=== PATIENT | female | born 1940 | race Caucasian/White ===

== ENCOUNTER → 2016-12-02 | Outpatient (CLI) | payer MEDICARE, OTHER ==
[~2016-12-02] MED LIST: ALBU.5I NEB; AUGM875T PO; CALC1TAB12 PO; MULT1TAB84 PO; SPIRCAP INH; VENL37.5 PO; VENTAER INH; ZOFR4TAB3 SL
[2016-12-02 14:42] LABS: BLOOD GAS BASE EXCESS 1.2 mmol/L (-2-2); BLOOD GAS CARBOXYHEMOGLOBIN 2.6 % (0-4); BLOOD GAS HCO3 25 mmol/L (22-26); BLOOD GAS METHEMOGLOBIN 1.1 % (0-2); BLOOD GAS O2 HGB SATURATION 90 % (90-100); BLOOD GAS OXYGEN CONTENT 15.7 Vol % (12.0-20.0); BLOOD GAS PCO2 39 mmHg (38-42); BLOOD GAS PO2 68 mmHg (61-120); BLOOD GAS TOTAL HGB 12.5 G/DL (12.0-16.0); TEMP CORR TO 98.6
[2016-12-02 14:44] LABS: CRITICAL VALUE NO; DRAW SITE RT RADIAL; FIO2 21 %; NUMBER OF ARTERIAL PUNCTURES 1; STAT NO; ULNAR PULSE PRESENT
--- NOTE | 2016-12-08 10:12 | RSPPFT ---
DATE OF PROCEDURE: 12/02/16 COMMENTS: Spirometry with FVC of 1.9 predicted 2.2, FEV1 of 0.7 predicted 1.4, FEV1/FVC ratio 39% predicted 67%. Post-bronchodilator FVC increases to 2.2. Severe air trapping is present with RV 3.6 predicted 1.6. DLCO is 37% of predicted. IMPRESSION: On the basis of the above, patient has a severe obstructive lung defect with responsiveness to acutely inhaled bronchodilator. Air trapping and decreased DLCO are also present.
== END ==
LOC: HRSP 13:05
PROVIDERS: ATTEND Internal Medicine Pulmonary Disease
DX: J44.9 Chronic obstructive pulmonary disease, unspecified (principal)
CPT/HCPCS: 36600; 82805; 94060; 94620; 94726; 94729

== ENCOUNTER 2017-08-01 15:40 | Inpatient (IN) | payer MEDICARE, OTHER ==
[~2017-08-01] VITALS: Ht 154.9 cm; Wt 49.4 kg
[2017-08-01 15:50] VITALS: BP 139/84; PULSE 109; RESP 28; TEMP 98.1; O2SAT 92
[2017-08-01 16:15] VITALS: RESP 24; O2SAT 94
[2017-08-01] MEDS ORDERED: SODIUM CHLORIDE 0.9% FLUSH 10 ML FLUSH IVF PRN (16:15)
[2017-08-01] MEDS ORDERED: RESP: ALBUTEROL 2.5 MG/IPRATROPIUM 0.5 MG NEB (SCH) INH ONE (16:15)
--- NOTE | 2017-08-01 16:16 | PD ---
HPI Chief Complaint: Respiratory Distress Time Seen by Provider: 15:57 Travel History International Travel<30 days: No Contact w/Intl Traveler<30days: No History of Present Illness HPI 77 year-old woman presents to the emergency department complaining of increased shortness of breath and productive cough for the past week. History of COPD and home oxygen dependence. No fevers. No chest pain. Using breathing medicines at home without improvement. With EMS received 125 mg of Solu-Medrol and breathing treatments with some improvement. History Past Medical History Narrative Medical COPD Tobacco abuse Hypertension Possible pulmonary fibrosis according to previous records Depression Menopausal: Yes Dilation and Curettage (D&C): Yes Social History Alcohol Use: Yes (3-4 BEERS/wine DAILY) Tobacco Use: Yes (2 PP WEEK) Allergies-Medications (Allergen,Severity, Reaction): Coded Allergies: epinephrine (Unverified Allergy, Severe, HEART FLUTTER-AT DENTIST OFFICE, 08/01/17) Reported Meds & Prescriptions Reported Meds & Active Scripts Active Reported Advair Diskus Inh (Fluticasone-Salmeterol Inh) 250-50 Mcg/Blist Aer 1 Puff INH BID Rinse mouth after use. Incruse Ellipta Inh (Umeclidinium [place] Inh) 0.0625 Mg/Act Inh 62.5 Mcg INH DAILY Montelukast (Montelukast Sodium) 10 Mg Tab 10 Mg PO HS Doxycycline Hyclate 100 Mg Cap 100 Mg PO BID Calcium 500 +D (Calcium Carbonate-Cholecalciferol) 500-400 Mg-Unit Tab 1 Tab PO BID Effexor (Venlafaxine HCl) 37.5 Mg Tab 37.5 Mg PO Q12H Ventolin Hfa 18 GM Inh (Albuterol Sulfate) 90 Mcg/Act Aer 1 Puff INH Q4H PRN Albuterol Neb (Albuterol Sulfate) 2.5 Mg/0.5 Ml Neb 2.5 Mg NEB Q4HR NEB PRN Note: The Albuterol Sulfate Inhalation Solution is concentrated and must be diluted. Read complete instructions carefully before using. Review of Systems Except as stated in HPI: all other systems reviewed are Neg Physical Exam Narrative GENERAL: Frail 77 year-old woman, severe shortness of breath. SKIN: Focused skin assessment warm/dry. HEAD: Atraumatic. Normocephalic. EYES: Pupils equal and round. No scleral icterus. No injection or drainage. ENT: No nasal bleeding or discharge. Mucous membranes pink and moist. NECK: Trachea midline. No JVD. CARDIOVASCULAR: Regular rate and rhythm. No murmur appreciated. RESPIRATORY: Moderate respiratory distress. Speaks in short sentences. Still labored. Moderate diffuse wheezing. Good air movement. GASTROINTESTINAL: Evidence flat and soft. No tenderness. MUSCULOSKELETAL: No obvious deformities. No edema. NEUROLOGICAL: Awake and alert. No obvious cranial nerve deficits. Motor grossly within normal limits. Normal speech. Data Data Last Documented VS Vital Signs Date Time Temp Pulse Resp B/P (MAP) Pulse Ox O2 Delivery O2 Flow Rate FiO2 08/01/17 16:16 94 Nasal Cannula 3.00 08/01/17 16:15 24 08/01/17 15:50 98.1 109 139/84 (102) Orders Orders Complete Blood Count With Diff (08/01/17 16:01) Comprehensive Metabolic Panel (08/01/17 16:01) B-Type Natriuretic Peptide (08/01/17 16:01) Troponin I (08/01/17 16:01) Iv Access Insert/Monitor (08/01/17 16:01) Electrocardiogram (08/01/17 16:01) Ecg Monitoring (08/01/17 16:01) Oximetry (08/01/17 16:01) Oxygen Administration (08/01/17 16:01) Chest, Single Ap (08/01/17 16:01) Sodium Chloride 0.9% Flush (Ns Flush) (08/01/17 16:15) Albuterol-Ipratropium Neb (Duoneb Neb) (08/01/17 16:15) Azithromycin (Zithromax) (08/01/17 17:15) Admit Order (Ed Use Only) (08/01/17 ) Consult Palliative Care (08/01/17 ) Labs Laboratory Tests Test 08/01/17 16:00 White Blood Count 7.1 TH/MM3 Red Blood Count 3.96 MIL/MM3 Hemoglobin 13.5 GM/DL Hematocrit 38.7 % Mean Corpuscular Volume 97.6 FL Mean Corpuscular Hemoglobin 34.0 PG Mean Corpuscular Hemoglobin Concent 34.8 % Red Cell Distribution Width 13.0 % Platelet Count 332 TH/MM3 Mean Platelet Volume 6.6 FL Neutrophils (%) (Auto) 57.3 % Lymphocytes (%) (Auto) 29.3 % Monocytes (%) (Auto) 10.5 % Eosinophils (%) (Auto) 2.4 % Basophils (%) (Auto) 0.5 % Neutrophils # (Auto) 4.1 TH/MM3 Lymphocytes # (Auto) 2.1 TH/MM3 Monocytes # (Auto) 0.7 TH/MM3 Eosinophils # (Auto) 0.2 TH/MM3 Basophils # (Auto) 0.0 TH/MM3 CBC Comment DIFF FINAL Differential Comment Blood Urea Nitrogen 7 MG/DL Creatinine 0.63 MG/DL Random Glucose 109 MG/DL Total Protein 7.7 GM/DL Albumin 4.6 GM/DL Calcium Level 9.3 MG/DL Alkaline Phosphatase 76 U/L Aspartate Amino Transf (AST/SGOT) 21 U/L Alanine Aminotransferase (ALT/SGPT) 18 U/L Total Bilirubin 0.5 MG/DL Sodium Level 131 MEQ/L Potassium Level 4.1 MEQ/L Chloride Level 95 MEQ/L Carbon Dioxide Level 28.0 MEQ/L Anion Gap 8 MEQ/L Estimat Glomerular Filtration Rate 91 ML/MIN Troponin I 0.02 NG/ML B-Type Natriuretic Peptide 202 PG/ML MDM Medical Decision Making Medical Screen Exam Complete: Yes Emergency Medical Condition: Yes Interpretation(s) My review of EKG: Sinus tachycardia rate of 100, nonspecific lateral ST depressions and T-wave inversions. Compared to previous EKG from 2014, no significant change. Differential Diagnosis COPD, hypoxia, pneumonia, bronchitis, heart failure, other Narrative Course Medical decision making the INITIAL: 69-year-old woman with COPD, chronic severe underlying, here with laceration. Still a moderate respiratory difficulties. We'll check labs, x-ray , reassess. She got steroids and bronchodilators with EMS. Diagnosis Primary Impression: COPD exacerbation Admitting Information Admitting Physician Requests: Observation Keanu Gardner MD Aug 01, 2017 16:16
[2017-08-01 16:23] LABS: AUTOMATED NEUTROPHIL # 4.1 TH/MM3 (1.8-7.7); BASOPHIL % 0.5 % (0.0-2.0); EOSINOPHIL # 0.2 TH/MM3 (0-0.4); EOSINOPHIL % 2.4 % (0.0-4.0); HEMATOCRIT 38.7 % (35.0-46.0); HEMO FLAGS DIFF FINAL; LYMPH % 29.3 % (9.0-44.0); LYMPHOCYTE # 2.1 TH/MM3 (1.0-4.8); MEAN CELL VOLUME 97.6 FL (80.0-100.0); MEAN CORPUSCULAR HGB CONC 34.8 % (32.0-36.0); MONO % 10.5 % (0.0-8.0); NEUT % 57.3 % (16.0-70.0); PLATELET COUNT 332 TH/MM3 (150-450); RED BLOOD COUNT 3.96 MIL/MM3 (4.00-5.30); WHITE BLOOD COUNT 7.1 TH/MM3 (4.0-11.0)
[2017-08-01 16:42] LABS: ALT (GPT) 18 U/L (10-53); ANION GAP 8 MEQ/L (5-15); AST (GOT) 21 U/L (15-37); BLOOD UREA NITROGEN 7 MG/DL (7-18); CHLORIDE 95 MEQ/L (98-107); GLOMERULAR FILTRATION RATE 91 ML/MIN (>89); POTASSIUM 4.1 MEQ/L (3.5-5.1); SODIUM (NA) 131 MEQ/L (136-145)
[2017-08-01 16:46] LABS: ALKALINE PHOSPHATASE 76 U/L (45-117); TOTAL BILIRUBIN ADULT 0.5 MG/DL (0.2-1.0)
--- NOTE | 2017-08-01 16:48 | RADRPT ---
EXAM DATE/TIME: 08/01/2017 16:35 [facility] COMPARISON: No previous studies available for comparison. INDICATIONS : Chest pain and shortness of breath. MEDICAL HISTORY : Chronic obstructive pulmonary disease. Hypertension SURGICAL HISTORY : None. ENCOUNTER: Initial ACUITY: 2 days PAIN SCORE: 5/10 LOCATION: Bilateral chest FINDINGS: A single view of the chest demonstrates a very similar pattern to 2016. There is a question rounded i nfiltrate at the right lung base, unchanged, could just be a diaphragmatic eventration. Left lung is clear. Heart and mediastinum are unremarkable. The cardiomediastinal contours are unremarkable. Oss eous structures are intact. CONCLUSION: Stable exam. Rounded density right lung base is unchanged. Keanu Messina MD on August 01, 2017 at 16:44 Board Certified Radiologist. This report was verified electronically.
[2017-08-01] MEDS ORDERED: MONT10TA4 PO (17:11)
[2017-08-01] MEDS ORDERED: DOXY100C PO (17:11)
[2017-08-01] MEDS ORDERED: UMEC1INH INH (17:11)
[2017-08-01] MEDS ORDERED: ADVA250A INH (17:11)
[2017-08-01] MEDS ORDERED: AZITHROMYCIN 250 MG TAB PO ONE (17:15)
[2017-08-01] MEDS ORDERED: methylPREDNISolone SOD SUCC 125 MG/2 ML VIAL IV PUSH ONE (17:45)
--- NOTE | 2017-08-01 17:47 | HHI.HP ---
HPI Service [facility] Hospitalists Primary Care Physician Osman Greenwood D.O. Admission Diagnosis COPD Exacerbation Chief Complaint: sob Travel History International Travel<30 Days: No Contact w/Intl Traveler <30 Da: No History of Present Illness Ms. Chandler is a 76 y/o WF with severe COPD, tobacco abuse, HTN, and regular alcohol use. Pt says she usually uses up to 4lnc o2 at home. She still smokes cigarettes up to 3 pack per week. Says she has had poor appetite, more weakness and more sob/wheezing. Had solumedrol and nebs and request for admission to [facility] severe copd exacerbation. Pt clear that she wants dnr. She and daughter told ED that she was interested in pallliative care consult. Review of Systems Other sob weak Past Family Social History Past Medical History COPD, PFT showed severe obstruction with FEV1 23% Asthma bronchiectasis Tobacco abuse HTN Degenerative arthritis Mild depression Urinary incontinence Hx of skin cancer Past Surgical History Skin cancer removal Knee surgery Tubal ligation Reported Medications Advair Diskus Inh (Fluticasone-Salmeterol Inh) 250-50 Mcg/Blist Aer 1 Puff INH BID Rinse mouth after use. Incruse Ellipta Inh (Umeclidinium [place] Inh) 0.0625 Mg/Act Inh 62.5 Mcg INH DAILY Montelukast (Montelukast Sodium) 10 Mg Tab 10 Mg PO HS Doxycycline Hyclate 100 Mg Cap 100 Mg PO BID Calcium 500 +D (Calcium Carbonate-Cholecalciferol) 500-400 Mg-Unit Tab 1 Tab PO BID Effexor (Venlafaxine HCl) 37.5 Mg Tab 37.5 Mg PO Q12H Ventolin Hfa 18 GM Inh (Albuterol Sulfate) 90 Mcg/Act Aer 1 Puff INH Q4H PRN Albuterol Neb (Albuterol Sulfate) 2.5 Mg/0.5 Ml Neb 2.5 Mg NEB Q4HR NEB PRN Note: The Albuterol Sulfate Inhalation Solution is concentrated and must be diluted. Read complete instructions carefully before using. Allergies: Coded Allergies: epinephrine (Unverified Allergy, Severe, HEART FLUTTER-AT DENTIST OFFICE, 08/01/17) Family History noncontributory ( Social History over 60yrs tobacco use and still up to 3packs per weeks drinks 2or 3 beers per day Physical Exam Vital Signs heart reg lung bilateral exp wheezing abd s/nt ext no pitting Vital Signs Date Time Temp Pulse Resp B/P (MAP) Pulse Ox O2 Delivery O2 Flow Rate FiO2 08/01/17 16:16 94 Nasal Cannula 3.00 08/01/17 16:15 24 94 Nasal Cannula 3.00 08/01/17 16:15 94 3.00 08/01/17 15:50 98.1 109 28 139/84 (102) 92 Laboratory Laboratory Tests Test 08/01/17 16:00 White Blood Count 7.1 Red Blood Count 3.96 Hemoglobin 13.5 Hematocrit 38.7 Mean Corpuscular Volume 97.6 Mean Corpuscular Hemoglobin 34.0 Mean Corpuscular Hemoglobin Concent 34.8 Red Cell Distribution Width 13.0 Platelet Count 332 Mean Platelet Volume 6.6 Neutrophils (%) (Auto) 57.3 Lymphocytes (%) (Auto) 29.3 Monocytes (%) (Auto) 10.5 Eosinophils (%) (Auto) 2.4 Basophils (%) (Auto) 0.5 Neutrophils # (Auto) 4.1 Lymphocytes # (Auto) 2.1 Monocytes # (Auto) 0.7 Eosinophils # (Auto) 0.2 Basophils # (Auto) 0.0 CBC Comment DIFF FINAL Differential Comment Blood Urea Nitrogen 7 Creatinine 0.63 Random Glucose 109 Total Protein 7.7 Albumin 4.6 Calcium Level 9.3 Alkaline Phosphatase 76 Aspartate Amino Transf (AST/SGOT) 21 Alanine Aminotransferase (ALT/SGPT) 18 Total Bilirubin 0.5 Sodium Level 131 Potassium Level 4.1 Chloride Level 95 Carbon Dioxide Level 28.0 Anion Gap 8 Estimat Glomerular Filtration Rate 91 Troponin I 0.02 B-Type Natriuretic Peptide 202 Result Diagram: 08/01/17 1600 08/01/17 1600 Caprini VTE Risk Assessment Caprini Risk Assessment Model Point Value = 1 Point Value = 2 Point Value = 3 Point Value = 5 Age 41-60 Minor surgery BMI > 25 kg/m2 Swollen legs Varicose veins or History of unexplained or recurrent spontaneous Oral contraceptives or hormone replacement Sepsis (< 1 month) Serious lung disease, including pneumonia (< 1 month) Abnormal pulmonary function Acute myocardial infarction Congestive heart failure (< 1 month) History of inflammatory bowel disease Medical patient at bed rest Age 61-74 Arthroscopic surgery Major open surgery (> 45 min) Laparoscopic surgery (> 45 min) Malignancy Confined to bed (> 72 hours) Immobilizing plaster cast Central venous access Age >= 75 History of VTE Family history of VTE Factor V Leiden Prothrombin [id number] Lupus anticoagulant Anticardiolipin antibodies Elevated serum homocysteine Heparin-induced thrombocytopenia Other congenital or acquired thrombophilia Stroke (< 1 month) Elective arthroplasty Hip, pelvis, or leg fracture Acute spinal cord injury (< 1 month) Prophylaxis Regimen Total Risk Factor Score Risk Level Prophylaxis Regimen 0-1 Low Early ambulation 2 Moderate Order ONE of the following: *Sequential Compression Device (SCD) *Heparin 5000 units SQ BID 3-4 Higher Order ONE of the following medications: *Heparin 5000 units SQ TID *Enoxaparin/Lovenox 40 mg SQ daily (WT < 150 kg, CrCl > 30 mL/min) *Enoxaparin/Lovenox 30 mg SQ daily (WT < 150 kg, CrCl > 10-29 mL/min) *Enoxaparin/Lovenox 30 mg SQ BID (WT < 150 kg, CrCl > 30 mL/min) AND/OR *Sequential Compression Device (SCD) 5 or more Highest Order ONE of the following medications: *Heparin 5000 units SQ TID (Preferred with Epidurals) *Enoxaparin/Lovenox 40 mg SQ daily (WT < 150 kg, CrCl > 30 mL/min) *Enoxaparin/Lovenox 30 mg SQ daily (WT < 150 kg, CrCl > 10-29 mL/min) *Enoxaparin/Lovenox 30 mg SQ BID (WT < 150 kg, CrCl > 30 mL/min) AND *Sequential Compression Device (SCD) Assessment and Plan Problem List: (1) COPD exacerbation ICD Codes: J44.1 - Chronic obstructive pulmonary disease with (acute) exacerbation Status: Acute Plan: 1. severe copd exacerbation scheduled solumedrol and nebulizer rx cont oxygen. pt reports using 4lnc o2 at home dvt prophylaxis PT eval palliative care consulted to clarify goals pt reports dnr to me (2) Tobacco abuse ICD Codes: Z72.0 - Tobacco use Status: Chronic (3) HTN (hypertension), benign ICD Codes: I10 - Essential (primary) hypertension Status: Chronic Physician Certification 2 Midnight Certification Type: Admission for Inpatient Services Order for Inpatient Services 3The services are ordered in accordance with Medicare regulations or non- Medicare payer requirements, as applicable. In the case of services not specified as inpatient-only, they are appropriately provided as inpatient services in accordance with the 2-midnight benchmark. Estimated LOS (days): 3 3 days is the estimated time the patient will need to remain in the hospital, assuming treatment plan goals are met and no additional complications. Post-Hospital Plan: Home Jose R Hampton MD Aug 01, 2017 17:47
[2017-08-01 17:52] VITALS: O2SAT 95
[2017-08-01] MEDS ORDERED: ONDANSETRON HCL 4 MG/2 ML VIAL IV PUSH PRN (18:00)
[2017-08-01 18:24] VITALS: BP 147/68; PULSE 99; RESP 23; TEMP 99; O2SAT 92
[2017-08-01 20:00] VITALS: BP 124/59; PULSE 97; RESP 18; TEMP 98.9; O2SAT 93
[2017-08-01] MEDS: RESP: ALBUTEROL 2.5 MG/IPRATROPIUM 0.5 MG NEB (SCH) NEB (21:00)
[2017-08-01] MEDS: methylPREDNISolone SOD SUCC 125 MG/2 ML VIAL IV PUSH SCH (22:21)
[2017-08-01] MEDS: MONTELUKAST SODIUM 10 MG TAB PO SCH (22:21)
[2017-08-01] MEDS: CALCIUM/VITAMIN D 250 MG/125 U TAB PO SCH (22:21)
[2017-08-02] VITALS (15 sets, daily range): BP systolic 109–133; BP diastolic 57–74; PULSE 70–165; RESP 18–24; TEMP 97.4–98.7; O2SAT 90–95
[2017-08-02] MEDS: methylPREDNISolone SOD SUCC 125 MG/2 ML VIAL IV PUSH SCH ×3 (06:38→21:48)
[2017-08-02] MEDS: RESP: ALBUTEROL 2.5 MG/IPRATROPIUM 0.5 MG NEB (SCH) NEB ×4 (08:58→20:28)
[2017-08-02] MEDS ORDERED: PATIENT OWN MEDICATION INH SCH (09:00)
[2017-08-02] MEDS: CALCIUM/VITAMIN D 250 MG/125 U TAB PO SCH ×2 (09:42→21:48)
[2017-08-02] MEDS: VENLAFAXINE HCL XR 75 MG CAP PO SCH (09:42)
[2017-08-02] MEDS ORDERED: DILTIAZEM HCL 25 MG/5 ML VIAL ONE (14:53)
[2017-08-02] MEDS ORDERED: DILTIAZEM HCL 25 MG/5 ML VIAL IV PUSH ONE (15:15)
[2017-08-02] MEDS: DILTIAZEM INJ 125 MG in SODIUM CHLORIDE 0.9% INJ 100 ML IV PRN (15:26)
[2017-08-02] MEDS ORDERED: DIGOXIN 0.5 MG/2 ML VIAL IV PUSH STA (16:20)
--- NOTE | 2017-08-02 16:42 | PD.CONS ---
Consult Service Palliative Care Consult Requested By Dr. Gardner. Primary Care Physician Osman Greenwood D.O. Reason for Consultation a. To assist with evaluation and management of symptoms including: Shortness of breath, debility, poor appetite. b. To assist medical decision maker(s) with: better understanding of current medical conditions; weighing benefits/burdens of medical treatment options; making medical treatment decisions. . HPI History of Present Illness Mrs. Chandler is a 77-year-old female with a medical history significant for oxygen dependent COPD, hypertension, spinal stenosis, asthma, EtOH/tobacco use and abuse. Patient presented to ED via EMS on 08/01/17 for evaluation of shortness of breath, cough and poor appetite. ED workup to include EKG revealing sinus tachycardia with rate of 100. Chest x-ray revealing rounded density right lung base, unchanged from prior study. Larger workup revealing WBC 7.1, Hgb 13.5, platelet count 332. Sodium 141, potassium 4.1, BUN/ creatinine 7/0.63. BNP 202. Patient was admitted for further management. Palliative care consulted for further clarifications of goals of care is patient /family as request. Patient seen in her room. Additional staff present, patient on atrial fibrillation with RVR, heart rate in the 170s. This appears new onset as per patient's family. Patient has been placed on Cardizem drip. Patient alert and oriented x self, place and situation. Endorsing feeling "lousy". Intermittent pain to abdomen, and ribs and lower extremities. Appears chronic in nature. Patient with history of spinal stenosis. Reports shortness of breath on physical exertion, denies nausea/vomiting or other discomfort at this time. In this first visit, introduced the role of palliative care in advanced illness in regards to symptom management as well as support surrounding goals of care and advance care planning. Brief update provided to patient given her clinical status, A. fib with RVR. Stepped out of patient's room to speak with both daughters Madalyn and Mariangel. Obtained patient's past medical history and psychosocial history. Daughters report that patient has been residing independently for many years. Progressively getting weaker, losing weight and becoming more symptomatic within the last few months. Reviewed likely illness trajectory of COPD. Check concerns of patient's ability to return to independent living. Patient and daughters confirmed DNR/no CODE STATUS. Family verbalized comfort-directed goals. Hospice philosophy and benefits introduced to patient's daughters. Family in agreement with meeting with palliative care and patient tomorrow morning 08/03/17 for further clarifications of goals of care and reduction to hospice services. Goals of care conversation scheduled for tomorrow given current clinical condition to include new onset of A. fib with RVR. Reviewed patient's past medical history. Pulmonary function test 12/08/16 revealing severe obstructive lung deficit. Previous acute hospitalization from 07/25 to 07/27/2015 secondary to COPD exacerbation, pneumonia. Chest CT revealing moderate emphysema, chronic a typical mycobacterial infection versus chronic post-aspiration changes. Patient was seen by Dr. Baker on , fiberoptic bronchoscopy was recommended, declined by patient as she did not want any invasive procedures. . Function/Cognitive Trajectory Patient residing independently prior to this hospitalization. Family reporting progressive physical decline to include poor activity tolerance, dyspnea on physical exertion. Patient requiring standby assistance with bathing and dressing. Receiving assistance from CHIEF LIFESTYLE OFFICER/counseling of aging for 3 hours every week. No assistive device use for ambulation, however, family reporting that patient's ambulation is limited secondary to profound shortness of breath. Patient holding onto furniture and carter. No cognitive decline reported by family. . Review of Systems Constitutional: COMPLAINS OF: Fatigue, Weight loss, Change in appetite, Pain, DENIES: Fever Endocrine: DENIES: Heat/cold intolerance Eyes: DENIES: Eye pain Ears, nose, mouth, throat: DENIES: Nasal discharge, Oral lesions, Running Nose , Epistaxis Respiratory: COMPLAINS OF: Apneas, Cough, Shortness of breath Cardiovascular: COMPLAINS OF: Dyspnea on Exertion, DENIES: Lower Extremity Edema Gastrointestinal: DENIES: Abdominal pain, Nausea, Vomiting, Difficulty Swallowing Genitourinary: COMPLAINS OF: Urinary frequency Musculoskeletal: COMPLAINS OF: Stiffness, Back pain Integumentary: DENIES: Rash Hematologic/Lymphatics: COMPLAINS OF: Bruising Immunologic/Allergic: DENIES: Eczema Neurologic: COMPLAINS OF: Abnormal gait, Poor Balance, DENIES: Localized weakness, Seizures, Speech Problems, Tremor Psychiatric: DENIES: Confusion, Hallucinations, Agitation Past Family Social History Coded Allergies: epinephrine (Unverified Allergy, Severe, HEART FLUTTER-AT DENTIST OFFICE, 08/01/17) Past Medical History COPD, oxygen dependent Hypertension Spinal stenosis Asthma Arthritis Depression Urinary incontinence History of skin cancer EtOH/tobacco use and abuse . Past Surgical History Skin cancer removal Knee surgery Tubal ligation . Reported Medications Advair Diskus Inh (Fluticasone-Salmeterol Inh) 250-50 Mcg/Blist Aer 1 Puff INH BID Incruse Ellipta Inh (Umeclidinium [place] Inh) 0.0625 Mg/Act Inh 62.5 Mcg INH DAILY Montelukast (Montelukast Sodium) 10 Mg Tab 10 Mg PO HS Doxycycline Hyclate 100 Mg Cap 100 Mg PO BID Calcium 500 +D (Calcium Carbonate-Cholecalciferol) 500-400 Mg-Unit Tab 1 Tab PO BID Effexor (Venlafaxine HCl) 37.5 Mg Tab 37.5 Mg PO Q12H Ventolin Hfa 18 GM Inh (Albuterol Sulfate) 90 Mcg/Act Aer 1 Puff INH Q4H PRN Albuterol Neb (Albuterol Sulfate) 2.5 Mg/0.5 Ml Neb 2.5 Mg NEB Q4HR NEB PRN . Current Medications Medications (Trade) Dose Ordered Sig/Lionel Route Start Time Stop Time Status Last Admin (NS Flush) 2 ml UNSCH PRN IVF 08/01/17 16:15 (Duoneb Neb) 1 ampule Q4HR WHILE AWAKE NEB NEB 08/01/17 20:00 08/02/17 11:59 (SoluMEDROL INJ) 60 mg Q6HR IV PUSH 08/02/17 00:00 08/02/17 13:32 (Singulair) 10 mg HS PO 08/01/17 21:00 08/01/17 22:21 (Oscal-D 250-125) 250 mg BID PO 08/01/17 21:00 08/02/17 09:42 Patient Own Medication PT OWN MED: Umeclidinium Brom... DAILY INH 08/02/17 09:00 Future Hold (Effexor Xr) 75 mg DAILY PO 08/02/17 09:00 08/02/17 09:42 (Zofran Inj) 4 mg Q6H PRN IV PUSH 08/01/17 18:00 Diltiazem HCl 125 mg/Sodium Chloride 125 ml @ 5 mls/hr TITRATE PRN IV 08/02/17 15:15 08/02/17 15:26 Family History Sister and father had asthma. Brother of tuberculosis. . Substance Use Tobacco: Over 60 years of tobacco use. Smokes 6-8 cigarettes daily. Alcohol: Drinks 2-3 beers daily. Prescription med abuse: Denies. Illicits: Denies. . Psychosocial History Patient originally from [place]. Moved to [place] in 1979. Patient is , has 2 daughters Madalyn and Mariangel. 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 Retired 8 years ago at the age of 69. . Spiritual/Cultural Factors No confucianist affiliations. . Living Will: Copy in medical record Health Care Surrogate: Copy in medical record Date completed: 01/10/2014. . Health Care Surrogate(s): Patient elected her daughter Mariangel Hernandez as HCS, alt surrogate is Madalyn Godwin. . Documented care wishes: Living well with standard verbiage as it pertains to terminal condition, and stage condition or persistent vegetative state. . Today's verbally stated goals: No code. DNR/DNI. Patient and family expressing comfort-directed goals. Pending family meeting for further clarification. . Family/friends goals: Patient's daughters fully supportive of patient's wishes. . Ethical and Legal Issues No ethical legal issues identified. . Physical Exam Vital Signs Date Time Temp Pulse Resp B/P (MAP) Pulse Ox O2 Delivery O2 Flow Rate FiO2 08/02/17 15:26 155 118/70 08/02/17 11:58 98.7 98 18 110/70 (83) 93 08/02/17 09:00 93 Nasal Cannula 4.00 08/02/17 08:00 96 Nasal Cannula 4.00 08/02/17 08:00 97.6 86 18 109/61 (77) 94 08/02/17 04:00 Nasal Cannula 4.00 08/02/17 04:00 97.4 88 18 133/60 (84) 94 08/02/17 00:00 97.9 96 20 125/58 (80) 92 08/02/17 00:00 Nasal Cannula 4.00 08/01/17 22:00 Nasal Cannula 4.00 08/01/17 20:00 98.9 97 18 124/59 (80) 93 08/01/17 18:24 99.0 99 23 147/68 (94) 92 08/01/17 17:52 95 Nasal Cannula 4.00 08/01/17 16:16 94 Nasal Cannula 3.00 08/01/17 16:15 24 94 Nasal Cannula 3.00 08/01/17 16:15 94 3.00 08/01/17 15:50 98.1 109 28 139/84 (102) 92 Exam CONSTITUTIONAL/GENERAL: This is an elderly, frail looking female resting in bed in no acute distress. Patient appears older than stated age. TUBES/LINES/DRAINS: PIV's. SKIN: No jaundice, rashes, or lesions. Ecchymoses on upper extremities. No wounds seen anteriorly. Skin temperature appropriate. Not diaphoretic. HEAD: Atraumatic. Normocephalic. EYES: Pupils equal and round and reactive. Extraocular motions intact. No scleral icterus. No injection or drainage. Fundi not examined. ENT: Hearing grossly normal. Nose without bleeding or purulent drainage. Moist oral mucosa. edentulous. NECK: Trachea midline. Supple, nontender. CARDIOVASCULAR: Irregular rate, tachycardic. no murmurs, gallops, or rubs appreciated. Peripheral pulses symmetric. RESPIRATORY/CHEST: Symmetric, unlabored respirations. Clear, diminished to auscultation.hi. GASTROINTESTINAL: Abdomen soft, non-tender, nondistended. No guarding. Bowel sounds present. GENITOURINARY: Without palpable bladder distension. MUSCULOSKELETAL: Extremities without clubbing, cyanosis, or edema. No mottling or clubbing. NEUROLOGICAL: Awake and alert. Motor and sensory grossly within normal limits. Follows commands. Cognitively sharp. Moves all extremities. PSYCHIATRIC: No obvious anxiety/depression. no apparent hallucinations or other psychotic thought process. Calm and cooperative. . Diagnostic Tests Laboratory Laboratory Tests Test 08/01/17 16:00 White Blood Count 7.1 TH/MM3 (4.0-11.0) Red Blood Count 3.96 MIL/MM3 (4.00-5.30) Hemoglobin 13.5 GM/DL (11.6-15.3) Hematocrit 38.7 % (35.0-46.0) Mean Corpuscular Volume 97.6 FL (80.0-100.0) Mean Corpuscular Hemoglobin 34.0 PG (27.0-34.0) Mean Corpuscular Hemoglobin Concent 34.8 % (32.0-36.0) Red Cell Distribution Width 13.0 % (11.6-17.2) Platelet Count 332 TH/MM3 (150-450) Mean Platelet Volume 6.6 FL (7.0-11.0) Neutrophils (%) (Auto) 57.3 % (16.0-70.0) Lymphocytes (%) (Auto) 29.3 % (9.0-44.0) Monocytes (%) (Auto) 10.5 % (0.0-8.0) Eosinophils (%) (Auto) 2.4 % (0.0-4.0) Basophils (%) (Auto) 0.5 % (0.0-2.0) Neutrophils # (Auto) 4.1 TH/MM3 (1.8-7.7) Lymphocytes # (Auto) 2.1 TH/MM3 (1.0-4.8) Monocytes # (Auto) 0.7 TH/MM3 (0-0.9) Eosinophils # (Auto) 0.2 TH/MM3 (0-0.4) Basophils # (Auto) 0.0 TH/MM3 (0-0.2) CBC Comment DIFF FINAL Differential Comment Blood Urea Nitrogen 7 MG/DL (7-18) Creatinine 0.63 MG/DL (0.50-1.00) Random Glucose 109 MG/DL (74-106) Total Protein 7.7 GM/DL (6.4-8.2) Albumin 4.6 GM/DL (3.4-5.0) Calcium Level 9.3 MG/DL (8.5-10.1) Alkaline Phosphatase 76 U/L (45-117) Aspartate Amino Transf (AST/SGOT) 21 U/L (15-37) Alanine Aminotransferase (ALT/SGPT) 18 U/L (10-53) Total Bilirubin 0.5 MG/DL (0.2-1.0) Sodium Level 131 MEQ/L (136-145) Potassium Level 4.1 MEQ/L (3.5-5.1) Chloride Level 95 MEQ/L (98-107) Carbon Dioxide Level 28.0 MEQ/L (21.0-32.0) Anion Gap 8 MEQ/L (5-15) Estimat Glomerular Filtration Rate 91 ML/MIN (>89) Troponin I 0.02 NG/ML (0.02-0.05) B-Type Natriuretic Peptide 202 PG/ML (0-100) Result Diagram: 08/01/17 1600 08/01/17 1600 Imaging Last 48 hours Impressions Chest X-Ray 08/01/17 1601 Signed Impressions: Service Date/Time: Tuesday, August 01, 2017 16:35 - CONCLUSION: Stable exam. Rounded density right lung base is unchanged. Keanu Messina MD Patient/Family Conference Present at Family Conference: Daughters Madalyn and Mariangel. Family Conference Time (mins): 42 Family Conference Location: [facility] Issues Discussed: * Palliative care role, purpose, approach * Additional medical, psychosocial, and spiritual history * Patients general health, functional status, and cognitive changes in the months leading up to the current hospitalization * Patient/family understanding of the current medical problems -severe COPD, physical deconditioning, progressive decline. * Patient/family understanding of prognosis -poor overall prognosis for a prolonged survival * Patients goals of care as best understood from advance directives and/or conversations and/or values * Current medical treatment options and benefits/burdens of those options * Likely scenarios comparing ongoing aggressive care with a transition to comfort measures only * Questions answered to the best of my ability * Palliative care contact information provided * Hospice philosophy and benefits . Assessment and Plan Disease Oriented Problem List: (1) Atrial fibrillation with RVR (2) COPD exacerbation (3) HTN (hypertension), benign (4) Tobacco abuse (5) Physical deconditioning Symptom Scale: (1) Pain 0-10 Scale: 4 Comment: hx spinal stenosis (2) Shortness of breath 0-10 Scale: 5 Comment: COPD exacerbation (3) Debility 0-10 Scale: Unable to quantify Comment: Progressive. Pertinent Non-Medical Issues Psychosocial: Patient originally from [place]. Moved to [place] in 1979. Patient is , has 2 daughters Madalyn and Mariangel. 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 No service. Retired 8 years ago at the age of 69. Spiritual: No confucianist affiliation. Legal: Advance directives completed. Ethical issues impacting care: No ethical legal issues identified. . Important Contacts Daughter Mariangel Hernandez Daughter Madalyn Godwin . Prognosis Mrs. Chandler is a 77-year-old female with a medical history significant for oxygen dependent COPD, hypertension, spinal stenosis, asthma, EtOH/tobacco use and abuse. Patient presented to ED via EMS on 08/01/17 for evaluation of shortness of breath, cough and poor appetite. Patient with reported progressive decline to include for physical tolerance, dyspnea on minimal exertion, poor appetite/weight loss. Clinical course complicated by new onset of atrial fibrillation with RVR. Patient verbalizing comfort-directed to goals , she appears hospice appropriate given her advanced COPD, profound physical deconditioning and increased symptom burden. . Code Status: No Code Plan * CODE STATUS: No code. DNR/DNI. This has been confirmed with patient and 2 daughters Madalyn and Mariangel. * HEALTHCARE DECISION-MAKING: Patient participating in medical decision-making. She appears to have the ability to weight benefits versus burden of treatment options. Advance directives secured, patient has designated her daughter Mariangel Hernandez as healthcare surrogate decision maker, alt surrogate is other daughter Madalyn Godwin. * GOALS OF CARE: No code. DNR/DNI. Patient and family verbalizing comfort- directed goals. Palliative care to meet with patient and family tomorrow AM for further clarifications of goals of care, goals of care conversation with patient deferred at this time given pt's clinical condition, new onset of A. fib with RVR. Hospice philosophy and benefits introduced to patient's daughters, both supported of comfort-directed goals. * SYMPTOMS: = Shortness of breath. Severe COPD, COPD exacerbation. Currently on Solu-Medrol 60 mg every 6 hours, Singulair at bedtime, DuoNeb as needed. = Pain, chronic pain to back, ribs, lower extremities. Patient with history of spinal stenosis. No pain regimen at home. = Debility, progressive. Worsened during the past 6 months. * Palliative care contact information has been provided to patient and family. * Palliative care will continue to follow-up for further clarifications of goals of care as patient's clinical course continues to evolve. . Time Spent Total Floor Time (mins): 66 (Total time to include review and summarization of available medical records to include prior hospitalizations, physical exam, goals of care conversation with patient and family, case discussion with bedside RN.) >50% Counseling/Coord of Care: Yes Thank you for the opportunity to participate in the care of Ms. Chandler. Attestation To help prompt me to consider important information that might be impacting today's encounter and assessment, information from prior notes written by myself or my colleagues may have been "brought forward" into today's note. My signature on this note, however, is an attestation that I personally performed the exam, history, and/or decision-making noted today, and, unless otherwise indicated, the interactions with patient, family, and staff as well as the review of records all occurred today. I also attest that the listed assessment and stated plan reflect my best clinical judgment today based on the combination of historical information, prior notes, and today's exam/ interactions. When time spent is documented, it refers only to time spent today by the signer, or if indicated, combined time spent today by collaborating physician/nurse practitioner. Bertha Anne Aug 02, 2017 16:42
--- NOTE | 2017-08-02 16:45 | HHI.PR ---
Subjective Remarks Pt c/o acute worsening of SOB. Johnnieicat was called. Pt was found to have Afib with RVR. HR running in the 140 - 160 range with spikes higher. Objective Vitals Vital Signs Date Time Temp Pulse Resp B/P (MAP) Pulse Ox O2 Delivery O2 Flow Rate FiO2 08/02/17 15:53 154 20 121/63 (82) 93 08/02/17 15:26 155 118/70 08/02/17 14:55 165 112/64 (80) 93 08/02/17 11:58 98.7 98 18 110/70 (83) 93 08/02/17 09:00 93 Nasal Cannula 4.00 08/02/17 08:00 96 Nasal Cannula 4.00 08/02/17 08:00 97.6 86 18 109/61 (77) 94 08/02/17 04:00 Nasal Cannula 4.00 08/02/17 04:00 97.4 88 18 133/60 (84) 94 08/02/17 00:00 97.9 96 20 125/58 (80) 92 08/02/17 00:00 Nasal Cannula 4.00 08/01/17 22:00 Nasal Cannula 4.00 08/01/17 20:00 98.9 97 18 124/59 (80) 93 08/01/17 18:24 99.0 99 23 147/68 (94) 92 08/01/17 17:52 95 Nasal Cannula 4.00 Result Diagram: 08/01/17 1600 08/01/17 1600 Imaging Last Impressions Chest X-Ray 08/01/17 1601 Signed Impressions: Service Date/Time: Tuesday, August 01, 2017 16:35 - CONCLUSION: Stable exam. Rounded density right lung base is unchanged. Keanu Messina MD Objective Remarks GENERAL: This is a well-nourished, well-developed patient, in no apparent distress. CARDIOVASCULAR: irregularly, irregular, tachycardiac RESPIRATORY: Clear to auscultation. Breath sounds equal bilaterally. No wheezes , rales, or rhonchi. GASTROINTESTINAL: Abdomen soft, non-tender, nondistended. Normal active bowel sounds MUSCULOSKELETAL: Extremities without clubbing, cyanosis, or edema. NEURO: Alert & Oriented x4 to person, place, time, situation. Moves all ext x4 A/P Problem List: (1) COPD exacerbation ICD Codes: J44.1 - Chronic obstructive pulmonary disease with (acute) exacerbation Status: Acute Plan: - severe copd exacerbation - solumedrol - duonebs - supplemental O2 - DVT prophylaxis - supportive care atrial fibrillation - pt found to have new onset Afib with RVR - Halicat was called which I responded to (08/02) - Pt given IV Cardizem bolus without convincing response - Pt started on IV Cardizem, maximum dose achieved without rate control - Case d/w Dr. Roberts, Cardiology. He will consult - Pt started on IV Digoxin - Pt started on IV amiodarone - obtain dig level in AM - obtain TSH, free T4, Mag - continue to observe on telemetry - start lovenox (2) HTN (hypertension), benign ICD Codes: I10 - Essential (primary) hypertension Status: Chronic (3) Tobacco abuse ICD Codes: Z72.0 - Tobacco use Status: Chronic Logan Alvarado DO Aug 02, 2017 16:45
[2017-08-02] MEDS ORDERED: AMIODARONE INJ 150 MG in DEXTROSE 5% IN WATER 100ML INJ 100 ML IV ONE ×2 (17:00)
--- NOTE | 2017-08-02 17:11 | EKG ---
Date Performed: 08/01/2017 Time Performed: 16:09:15 PTAGE: 77 years EKG: SINUS TACHYCARDIA WITH SHORT IA INTERVAL POSSIBLE LEFT ATRIAL ENLARGEMENT ST DEVIATION AND MODERATE T-WAVE ABNORMALITY, CONSIDER ANTEROLATERAL ISCHEMIA ST DEVIATION AND MODERATE T-WAVE ABNORMA LITY, CONSIDER INFERIOR ISCHEMIA Since previous tracing, no significant change noted ABNORMAL ECG PREVIOUS TRACING : 07/24/2015 22.59 DOCTOR: Salena Venegas Interpretating Date/Time 08/02/2017 17:09:43
[2017-08-02 17:52] LABS: FREE T4 1.28 NG/DL (0.76-1.46); MAGNESIUM 1.9 MG/DL (1.5-2.5)
[2017-08-02] MEDS: AMIODARONE INJ 450 MG in DEXTROSE 5% IN WATE(EXCEL) INJ 241 ML IV PRN ×2 (18:03)
[2017-08-02] MEDS: ENOXAPARIN SODIUM 60 MG/0.6 ML SYRINGE SQ SCH (18:05)
[2017-08-02] MEDS ORDERED: DIGOXIN 0.5 MG/2 ML VIAL IV PUSH SCH (21:00)
[2017-08-02] MEDS: MONTELUKAST SODIUM 10 MG TAB PO SCH (21:48)
[2017-08-03] VITALS (23 sets, daily range): BP systolic 113–157; BP diastolic 66–86; PULSE 58–110; RESP 20–22; TEMP 97.7–98.6; O2SAT 92–97
[2017-08-03] MEDS: DILTIAZEM INJ 125 MG in SODIUM CHLORIDE 0.9% INJ 100 ML IV PRN (00:26)
[2017-08-03] MEDS: AMIODARONE INJ 450 MG in DEXTROSE 5% IN WATE(EXCEL) INJ 241 ML IV PRN ×2 (02:04)
[2017-08-03] MEDS: ENOXAPARIN SODIUM 60 MG/0.6 ML SYRINGE SQ SCH (05:00)
[2017-08-03] MEDS: RESP: ALBUTEROL 2.5 MG/IPRATROPIUM 0.5 MG NEB (SCH) NEB ×2 (07:41→13:48)
--- NOTE | 2017-08-03 07:45 | PD.CONS ---
HPI Consult Requested By Primary Care Physician Osmna Greenwood D.O. History of Present Illness 77-year-old female with past medical history of O2 dependent COPD, tobacco abuse who initially presented to the hospital for COPD exacerbation. During hospitalization the patient was found to have atrial fibrillation with rapid ventricular response with rates 140-160. The patient states that she was asymptomatic throughout these episodes with no chest pain, palpitations, or worsening shortness of breath. She received IV Cardizem and IV digoxin and heart rate is better controlled overnight and currently in sinus rhythm. She states that her PCP Dr. Greenwood had actually referred her to see us in the outpatient setting because of chest pains. She states that occasionally she has a twinge of chest discomfort that lasts a few seconds, nonexertional. The patient is still apprehensive that she has atrial fibrillation and thinks that it is "a hoax". She states that it is been advised that she take aspirin before , but she has never taken this because she would rather "let nature take its course" despite stroke risks. (Maury Santiago) Review of Systems Negative except as stated in the history of present illness (Maury Santiago) Past Family Social History Allergies: Coded Allergies: epinephrine (Unverified Allergy, Severe, HEART FLUTTER-AT [facility]ENT[facility] OFFICE, 08/01/17) Past Medical History COPD, PFT showed severe obstruction with FEV1 23% Asthma bronchiectasis Tobacco abuse Degenerative arthritis Mild depression Urinary incontinence Hx of skin cancer Past Surgical History Skin cancer removal Knee surgery Tubal ligation Reported Medications Reported Meds & Active Scripts Active Reported Advair Diskus Inh (Fluticasone-Salmeterol Inh) 250-50 Mcg/Blist Aer 1 Puff INH BID Rinse mouth after use. Incruse Ellipta Inh (Umeclidinium [place] Inh) 0.0625 Mg/Act Inh 62.5 Mcg INH DAILY Montelukast (Montelukast Sodium) 10 Mg Tab 10 Mg PO HS Doxycycline Hyclate 100 Mg Cap 100 Mg PO BID Calcium 500 +D (Calcium Carbonate-Cholecalciferol) 500-400 Mg-Unit Tab 1 Tab PO BID Effexor (Venlafaxine HCl) 37.5 Mg Tab 37.5 Mg PO Q12H Ventolin Hfa 18 GM Inh (Albuterol Sulfate) 90 Mcg/Act Aer 1 Puff INH Q4H PRN Albuterol Neb (Albuterol Sulfate) 2.5 Mg/0.5 Ml Neb 2.5 Mg NEB Q4HR NEB PRN Note: The Albuterol Sulfate Inhalation Solution is concentrated and must be diluted. Read complete instructions carefully before using. Active Ordered Medications Current Medications Medications (Trade) Dose Ordered Sig/Lionel Route Start Time Stop Time Status Last Admin (NS Flush) 2 ml UNSCH PRN IVF 08/01/17 16:15 (Singulair) 10 mg HS PO 08/01/17 21:00 08/02/17 21:48 (Oscal-D 250-125) 250 mg BID PO 08/01/17 21:00 08/02/17 21:48 Patient Own Medication PT OWN MED: Umeclidinium Brom... DAILY INH 08/02/17 09:00 Future Hold (Effexor Xr) 75 mg DAILY PO 08/02/17 09:00 08/02/17 09:42 (Zofran Inj) 4 mg Q6H PRN IV PUSH 08/01/17 18:00 Diltiazem HCl 125 mg/Sodium Chloride 125 ml @ 5 mls/hr TITRATE PRN IV 08/02/17 15:15 08/03/17 00:26 (Lanoxin Inj) 0.25 mg DAILY IV PUSH 08/02/17 21:00 Amiodarone HCl 450 mg/Dextrose 250 ml @ 33.33 mls/ hr Q7H31M PRN IV 08/02/17 17:00 08/03/17 02:04 (Lovenox Inj) 50 mg Q12H SQ 08/02/17 17:00 08/02/17 18:05 (Duoneb Neb) 1 ampule Q6HR WHILE AWAKE NEB NEB 08/02/17 20:00 08/02/17 20:28 (SoluMEDROL INJ) 60 mg BID IV PUSH 08/02/17 21:00 08/02/17 21:48 (Habitrol 14 Mg Patch.24 Hr) 1 patch DAILY T-DERMAL 08/02/17 17:30 Miscellaneous Information 1 DAILY T-DERMAL 08/03/17 09:00 Family History Noncontributory Social History over 60yrs tobacco use and still up to 3packs per weeks drinks 2or 3 beers per day (Maury Santiago) Physical Exam Vital Signs Vital Signs Date Time Temp Pulse Resp B/P (MAP) Pulse Ox O2 Delivery O2 Flow Rate FiO2 08/03/17 07:01 81 08/03/17 04:00 97.7 69 20 147/69 (95) 97 08/03/17 04:00 59 08/03/17 02:15 62 08/03/17 02:04 69 08/03/17 00:26 70 08/03/17 00:00 67 08/03/17 00:00 98.2 80 22 113/68 (83) 93 08/02/17 23:30 80 113/68 08/02/17 22:30 74 120/74 08/02/17 20:30 92 Nasal Cannula 4.00 08/02/17 20:00 98.2 74 20 120/74 (89) 95 08/02/17 20:00 Nasal Cannula 4.00 08/02/17 20:00 72 08/02/17 18:30 98.5 152 24 120/74 (89) 90 08/02/17 18:03 150 110/57 08/02/17 17:35 129 106/57 08/02/17 16:41 97.7 144 18 115/57 (76) 94 08/02/17 15:53 154 20 121/63 (82) 93 08/02/17 15:26 155 118/70 08/02/17 14:55 165 112/64 (80) 93 08/02/17 11:58 98.7 98 18 110/70 (83) 93 08/02/17 09:00 93 Nasal Cannula 4.00 08/02/17 08:00 96 Nasal Cannula 4.00 08/02/17 08:00 97.6 86 18 109/61 (77) 94 Physical Exam GENERAL: Well-developed well-nourished. In no acute distress. NECK: No carotid bruits. No JVD. CARDIOVASCULAR: Regular rate and rhythm. No murmur appreciated. RESPIRATORY: No accessory muscle use. Clear to auscultation. Faint expiratory wheezing. MUSCULOSKELETAL: No clubbing or cyanosis. No edema. NEUROLOGICAL: Awake and alert. Normal speech. Laboratory Laboratory Tests Test 08/02/17 16:57 08/03/17 06:11 Magnesium Level 1.9 Free Thyroxine 1.28 Thyroid Stimulating Hormone 3rd Gen 0.477 Digoxin Level 1.4 (Maury Santiago) Result Diagram: 08/01/17 1600 08/01/17 1600 Imaging Last Impressions Chest X-Ray 08/01/17 1601 Signed Impressions: Service Date/Time: Tuesday, August 01, 2017 16:35 - CONCLUSION: Stable exam. Rounded density right lung base is unchanged. Keanu Messina MD (Maury Santiago) Assessment and Plan Assessment and Plan 77-year-old female with past medical history of O2 dependent COPD, tobacco abuse who initially presented to the hospital for COPD exacerbation. During hospitalization the patient was found to have atrial fibrillation with rapid ventricular response with rates 140-160. The patient states that she was asymptomatic throughout these episodes with no chest pain, palpitations, or worsening shortness of breath. A. fib with RVR: Asymptomatic. Currently NSR. On IV diltiazem, digoxin, and amiodarone. Change amiodarone to PO. Stop digoxin. Currently on Lovenox, patient apprehensive about anticoagulation. Acute exacerbation of COPD with chronic respiratory failure on home O2: Patient reports symptoms improving during hospitalization. Management per primary team. Tobacco cessation. Palliative care is following. (Maury Santiago) Assessment and Plan now NSR. cont PO amio DC digoxin DC lovenox. patient does not want anticoagulation aspirin 325 (Keanu Roberts MD) Maury Santiago Aug 03, 2017 07:45 Keanu Roberts MD Aug 03, 2017 08:11
--- NOTE | 2017-08-03 08:12 | PD.CARD.PN ---
Subjective Subjective Remarks Feels well. Breathing back to baseline. Hungry Objective Medications Current Medications Medications (Trade) Dose Ordered Sig/Lionel Route Start Time Stop Time Status Last Admin (NS Flush) 2 ml UNSCH PRN IVF 08/01/17 16:15 (Singulair) 10 mg HS PO 08/01/17 21:00 08/02/17 21:48 (Oscal-D 250-125) 250 mg BID PO 08/01/17 21:00 08/02/17 21:48 Patient Own Medication PT OWN MED: Umeclidinium Brom... DAILY INH 08/02/17 09:00 Future Hold (Effexor Xr) 75 mg DAILY PO 08/02/17 09:00 08/02/17 09:42 (Zofran Inj) 4 mg Q6H PRN IV PUSH 08/01/17 18:00 Diltiazem HCl 125 mg/Sodium Chloride 125 ml @ 5 mls/hr TITRATE PRN IV 08/02/17 15:15 08/03/17 00:26 (Duoneb Neb) 1 ampule Q6HR WHILE AWAKE NEB NEB 08/02/17 20:00 08/03/17 07:41 (SoluMEDROL INJ) 60 mg BID IV PUSH 08/02/17 21:00 08/02/17 21:48 (Habitrol 14 Mg Patch.24 Hr) 1 patch DAILY T-DERMAL 08/02/17 17:30 Miscellaneous Information 1 DAILY T-DERMAL 08/03/17 09:00 (Cordarone) 400 mg DAILY PO 08/03/17 09:00 UNV Vital Signs / I&O Vital Signs Date Time Temp Pulse Resp B/P (MAP) Pulse Ox O2 Delivery O2 Flow Rate FiO2 08/03/17 07:41 92 Nasal Cannula 4.00 08/03/17 07:01 81 08/03/17 06:00 68 08/03/17 05:00 58 08/03/17 04:00 97.7 69 20 147/69 (95) 97 08/03/17 04:00 59 08/03/17 03:00 64 08/03/17 02:15 62 08/03/17 02:04 69 08/03/17 02:00 62 08/03/17 01:00 64 08/03/17 00:26 70 08/03/17 00:00 67 08/03/17 00:00 98.2 80 22 113/68 (83) 93 08/02/17 23:30 80 113/68 08/02/17 23:00 72 08/02/17 22:30 74 120/74 08/02/17 22:00 76 08/02/17 21:00 70 08/02/17 20:30 92 Nasal Cannula 4.00 08/02/17 20:00 98.2 74 20 120/74 (89) 95 08/02/17 20:00 Nasal Cannula 4.00 08/02/17 20:00 72 08/02/17 19:00 152 08/02/17 18:30 98.5 152 24 120/74 (89) 90 08/02/17 18:03 150 110/57 08/02/17 17:35 129 106/57 08/02/17 16:41 97.7 144 18 115/57 (76) 94 08/02/17 15:53 154 20 121/63 (82) 93 08/02/17 15:26 155 118/70 08/02/17 14:55 165 112/64 (80) 93 08/02/17 11:58 98.7 98 18 110/70 (83) 93 08/02/17 09:00 93 Nasal Cannula 4.00 I/O 08/02/17 08/02/17 08/02/17 08/03/17 08/03/17 08/03/17 07:00 15:00 23:00 07:00 15:00 23:00 Intake Total 120 ml 240 ml 575 ml Balance 120 ml 240 ml 575 ml Intake Oral 120 ml 240 ml 200 ml IV Total 375 ml # Voids 1 1 # Bowel Movements 0 Physical Exam Lungs clear RRR Laboratory Laboratory Tests Test 08/02/17 16:57 08/03/17 06:11 Magnesium Level 1.9 MG/DL Free Thyroxine 1.28 NG/DL Thyroid Stimulating Hormone 3rd Gen 0.477 uIU/ML Digoxin Level 1.4 NG/ML Assessment and Plan Assessment and Plan No evidence of ischemia by lexiscan or clinically. Stable CV. Will sign off Fernandez Zhang MD Aug 03, 2017 08:12
[2017-08-03] MEDS: NICOTINE 14 MG/24 HR PATCH T-DERMAL SCH ×2 (08:18→09:00)
[2017-08-03] MEDS: CALCIUM/VITAMIN D 250 MG/125 U TAB PO SCH (08:18)
[2017-08-03] MEDS: VENLAFAXINE HCL XR 75 MG CAP PO SCH (08:18)
[2017-08-03] MEDS: methylPREDNISolone SOD SUCC 125 MG/2 ML VIAL IV PUSH SCH (08:20)
[2017-08-03] MEDS ORDERED: AMIODARONE 200 MG TAB PO SCH (09:00)
[2017-08-03] MEDS ORDERED: REMOVE OLD PATCH T-DERMAL SCH (09:00)
--- NOTE | 2017-08-03 09:02 | HHI.PR ---
Subjective Remarks Pts HR is better controlled Pts breathing is about the same as yesterday Afebrile Pt had reported to Cardiology some intermittent atypical chest discomfort which has occurred prior to admission Objective Vitals Vital Signs Date Time Temp Pulse Resp B/P (MAP) Pulse Ox O2 Delivery O2 Flow Rate FiO2 08/03/17 07:41 92 Nasal Cannula 4.00 08/03/17 07:01 81 08/03/17 06:00 68 08/03/17 05:00 58 08/03/17 04:00 97.7 69 20 147/69 (95) 97 08/03/17 04:00 59 08/03/17 03:00 64 08/03/17 02:15 62 08/03/17 02:04 69 08/03/17 02:00 62 08/03/17 01:00 64 08/03/17 00:26 70 08/03/17 00:00 67 08/03/17 00:00 98.2 80 22 113/68 (83) 93 08/02/17 23:30 80 113/68 08/02/17 23:00 72 08/02/17 22:30 74 120/74 08/02/17 22:00 76 08/02/17 21:00 70 08/02/17 20:30 92 Nasal Cannula 4.00 08/02/17 20:00 98.2 74 20 120/74 (89) 95 08/02/17 20:00 Nasal Cannula 4.00 08/02/17 20:00 72 08/02/17 19:00 152 08/02/17 18:30 98.5 152 24 120/74 (89) 90 08/02/17 18:03 150 110/57 08/02/17 17:35 129 106/57 08/02/17 16:41 97.7 144 18 115/57 (76) 94 08/02/17 15:53 154 20 121/63 (82) 93 08/02/17 15:26 155 118/70 08/02/17 14:55 165 112/64 (80) 93 08/02/17 11:58 98.7 98 18 110/70 (83) 93 08/02/17 09:00 93 Nasal Cannula 4.00 Result Diagram: 08/01/17 1600 08/01/17 1600 Other Results Laboratory Tests Test 08/01/17 16:00 08/02/17 16:57 08/03/17 06:11 White Blood Count 7.1 TH/MM3 Red Blood Count 3.96 MIL/MM3 Hemoglobin 13.5 GM/DL Hematocrit 38.7 % Mean Corpuscular Volume 97.6 FL Mean Corpuscular Hemoglobin 34.0 PG Mean Corpuscular Hemoglobin Concent 34.8 % Red Cell Distribution Width 13.0 % Platelet Count 332 TH/MM3 Mean Platelet Volume 6.6 FL Neutrophils (%) (Auto) 57.3 % Lymphocytes (%) (Auto) 29.3 % Monocytes (%) (Auto) 10.5 % Eosinophils (%) (Auto) 2.4 % Basophils (%) (Auto) 0.5 % Neutrophils # (Auto) 4.1 TH/MM3 Lymphocytes # (Auto) 2.1 TH/MM3 Monocytes # (Auto) 0.7 TH/MM3 Eosinophils # (Auto) 0.2 TH/MM3 Basophils # (Auto) 0.0 TH/MM3 CBC Comment DIFF FINAL Differential Comment Blood Urea Nitrogen 7 MG/DL Creatinine 0.63 MG/DL Random Glucose 109 MG/DL Total Protein 7.7 GM/DL Albumin 4.6 GM/DL Calcium Level 9.3 MG/DL Alkaline Phosphatase 76 U/L Aspartate Amino Transf (AST/SGOT) 21 U/L Alanine Aminotransferase (ALT/SGPT) 18 U/L Total Bilirubin 0.5 MG/DL Sodium Level 131 MEQ/L Potassium Level 4.1 MEQ/L Chloride Level 95 MEQ/L Carbon Dioxide Level 28.0 MEQ/L Anion Gap 8 MEQ/L Estimat Glomerular Filtration Rate 91 ML/MIN Troponin I 0.02 NG/ML B-Type Natriuretic Peptide 202 PG/ML Magnesium Level 1.9 MG/DL Free Thyroxine 1.28 NG/DL Thyroid Stimulating Hormone 3rd Gen 0.477 uIU/ML Digoxin Level 1.4 NG/ML Imaging Last Impressions Chest X-Ray 08/01/17 1601 Signed Impressions: Service Date/Time: Tuesday, August 01, 2017 16:35 - CONCLUSION: Stable exam. Rounded density right lung base is unchanged. Keanu Messina MD Objective Remarks General: NAD, AAOx3 Chest: Expiratory wheeze bilaterally Cardiac: Regular Abd: +BS, soft ND/NT Ext: No edema A/P Problem List: (1) COPD exacerbation ICD Codes: J44.1 - Chronic obstructive pulmonary disease with (acute) exacerbation Status: Acute Plan: - Pt admitted with a severe COPD exacerbation - Pt was started on Solu-Medrol and Duonebs at admission - This was de-escalated on 08/02 to Solu-Medrol 60mg Q12H and Duonebs Q6H WA - Pt continues to have significant wheezing, cont. IV steroids. - Cont. supplemental O2 - Palliative Care Medicine is following. - Pt is a DNR/DNI - DVT prophylaxis DISCHARGE PLANNING - Anticipate discharge in the next 1-2 days if HR continues to be controlled on just Amiodarone and breathing improves - Case was discussed with Dr. Roberts and from Cardiac standpoint the pt is stable for discharge as long as HR remains controlled on just Amiodarone today. - Pt will need to followup with [facility]iology as an outpt - Consult CM for SNF - Palliative Care Medicine is following as well, pt is DNR/DNI (2) Atrial fibrillation with RVR ICD Codes: I48.91 - Unspecified atrial fibrillation Status: Acute Plan: - On 08/02, pt developed new onset Afib with RVR - Halicat was called on 08/02 - Pt given IV Cardizem bolus without convincing response - She was started on IV Cardizem, maximum dose achieved without rate control - Case d/w Dr. Roberts, Cardiology. Cardiology consulted. - Pt was started on IV Digoxin and IV amiodarone in addition to the Cardizem gtt on 08/02 - Pt converted to NSR overnight - Appreciate Cardiology input, case was discussed with Dr. Roberts this morning. - IV Amiodarone and Cardizem to be stopped. - Pt not to continue on oral Dig - Pt will continue on Amiodarone 400mg po BID. - TSH, free T4 are WNL - Pt does not want anticoagulation. Risk of stroke or possible being increased off anticoagulation was discussed with the pt and she expressed understanding - Cont. ASA (3) HTN (hypertension), benign ICD Codes: I10 - Essential (primary) hypertension Status: Chronic (4) Tobacco abuse ICD Codes: Z72.0 - Tobacco use Status: Chronic Madalyn English Aug 03, 2017 09:02
[2017-08-03] MEDS ORDERED: NICO14DI23 T-DERMAL (13:45)
[2017-08-03] MEDS ORDERED: AMIO200T PO (13:45)
[2017-08-03] MEDS ORDERED: Albuterol-Ipratropium Neb NEB (13:45)
--- NOTE | 2017-08-03 13:52 | HHI.HCPN ---
Reason for visit a. To assist with evaluation and management of symptoms including: Shortness of breath, debility, poor appetite. b. To assist medical decision maker(s) with: better understanding of current medical conditions; weighing benefits/burdens of medical treatment options; making medical treatment decisions. . Subjective/Interval History Palliative care to follow-up for further clarifications of goals of care. Patient seen in cardiology floor, she was transferred yesterday after [facility] secondary to shortness of breath, atrial fibrillation with RVR. Patient was given Cardizem ID and subsequently placed on amiodarone drip. Cardiology, Dr. peres consulted. Patient currently on normal sinus rhythm, denies any pain or discomfort. Endorsing shortness of breath on exertion or with speech. Currently tolerating O2 at 4 L via nasal cannula. Oxygen saturation in the low to mid 90s. Patient remains afebrile, stable hemodynamically. No new imaging or laboratory for review. Goals of care conversation with patient. She is alert and oriented x self, place and situation. Reviewed patient's past medical history, psychosocial history, and events leading to this hospitalization, clinical course and current recommendations. Patient receptive to goals of care conversation. Patient tells me that her goal is to return home for independent living. She appears to have good understanding of her diagnosis to include advanced COPD, O2 dependent. Patient verbalizing comfort-directed goals, declines any invasive intervention, anticoagulation, artificial means of life support. 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 Patient requests an informative visit with hospice to further discuss benefits. Patient considering discharge home when medically clear with hospice services. Patient declining SNF for rehabilitation at this time. Telephone conversation with patient's daughter Madalyn. Both daughters in agreement with comfort directed goals and hospice referral. Discuss case with hospice admissions nurse Diamond. . Family/friend interactions See interval note. . Advance Directives Living Will: Copy in medical record Health Care Surrogate: Copy in medical record Advance Directive Specifics Date completed: 01/10/2014. . Health Care Surrogate(s): Patient elected her daughter Mariangel Hernandez as HCS, alt surrogate is Madalyn Godwin. . Documented care wishes: Living well with standard verbiage as it pertains to terminal condition, and stage condition or persistent vegetative state. . Significant change in goals: Patient verbalizing comfort directed goals. Considering hospice at discharge. . Objective Vital Signs Date Time Temp Pulse Resp B/P (MAP) Pulse Ox O2 Delivery O2 Flow Rate FiO2 08/03/17 11:01 98.1 92 22 137/66 (89) 92 08/03/17 08:01 96 Nasal Cannula 4.00 08/03/17 08:01 97.7 80 20 155/86 (109) 96 08/03/17 07:41 92 Nasal Cannula 4.00 08/03/17 07:01 81 08/03/17 06:00 68 08/03/17 05:00 58 08/03/17 04:00 97.7 69 20 147/69 (95) 97 08/03/17 04:00 59 08/03/17 03:00 64 08/03/17 02:15 62 08/03/17 02:04 69 08/03/17 02:00 62 08/03/17 01:00 64 08/03/17 00:26 70 08/03/17 00:00 67 08/03/17 00:00 98.2 80 22 113/68 (83) 93 08/02/17 23:30 80 113/68 08/02/17 23:00 72 08/02/17 22:30 74 120/74 08/02/17 22:00 76 08/02/17 21:00 70 08/02/17 20:30 92 Nasal Cannula 4.00 08/02/17 20:00 98.2 74 20 120/74 (89) 95 08/02/17 20:00 Nasal Cannula 4.00 08/02/17 20:00 72 08/02/17 19:00 152 08/02/17 18:30 98.5 152 24 120/74 (89) 90 08/02/17 18:03 150 110/57 08/02/17 17:35 129 106/57 08/02/17 16:41 97.7 144 18 115/57 (76) 94 08/02/17 15:53 154 20 121/63 (82) 93 08/02/17 15:26 155 118/70 08/02/17 14:55 165 112/64 (80) 93 Intake & Output 08/03/17 08/03/17 07:00 19:00 Intake Total 815 ml Balance 815 ml Intake Oral 440 ml IV Total 375 ml # Voids 1 Physical Exam CONSTITUTIONAL/GENERAL: This is an elderly, frail looking female resting in bed in no acute distress. Patient appears older than stated age. TUBES/LINES/DRAINS: PIV's. SKIN: No jaundice, rashes, or lesions. Ecchymoses on upper extremities. No wounds seen anteriorly. Skin temperature appropriate. Not diaphoretic. HEAD: Atraumatic. Normocephalic. EYES: Pupils equal and round and reactive. Extraocular motions intact. No scleral icterus. No injection or drainage. Fundi not examined. ENT: Hearing grossly normal. Nose without bleeding or purulent drainage. Moist oral mucosa. edentulous. NECK: Trachea midline. Supple, nontender. CARDIOVASCULAR: Irregular rate. No murmurs, gallops, or rubs appreciated. Peripheral pulses symmetric. RESPIRATORY/CHEST: Symmetric, unlabored respirations. Clear, diminished to auscultation.hi. GASTROINTESTINAL: Abdomen soft, non-tender, nondistended. No guarding. Bowel sounds present. GENITOURINARY: Without palpable bladder distension. MUSCULOSKELETAL: Extremities without clubbing, cyanosis, or edema. No mottling or clubbing. NEUROLOGICAL: Awake and alert. Motor and sensory grossly within normal limits. Follows commands. Cognitively sharp. Moves all extremities. PSYCHIATRIC: No obvious anxiety/depression. no apparent hallucinations or other psychotic thought process. Calm and cooperative. . Diagnostic Tests Laboratory Laboratory Tests Test 08/01/17 16:00 08/02/17 16:57 08/03/17 06:11 White Blood Count 7.1 TH/MM3 (4.0-11.0) Red Blood Count 3.96 MIL/MM3 (4.00-5.30) Hemoglobin 13.5 GM/DL (11.6-15.3) Hematocrit 38.7 % (35.0-46.0) Mean Corpuscular Volume 97.6 FL (80.0-100.0) Mean Corpuscular Hemoglobin 34.0 PG (27.0-34.0) Mean Corpuscular Hemoglobin Concent 34.8 % (32.0-36.0) Red Cell Distribution Width 13.0 % (11.6-17.2) Platelet Count 332 TH/MM3 (150-450) Mean Platelet Volume 6.6 FL (7.0-11.0) Neutrophils (%) (Auto) 57.3 % (16.0-70.0) Lymphocytes (%) (Auto) 29.3 % (9.0-44.0) Monocytes (%) (Auto) 10.5 % (0.0-8.0) Eosinophils (%) (Auto) 2.4 % (0.0-4.0) Basophils (%) (Auto) 0.5 % (0.0-2.0) Neutrophils # (Auto) 4.1 TH/MM3 (1.8-7.7) Lymphocytes # (Auto) 2.1 TH/MM3 (1.0-4.8) Monocytes # (Auto) 0.7 TH/MM3 (0-0.9) Eosinophils # (Auto) 0.2 TH/MM3 (0-0.4) Basophils # (Auto) 0.0 TH/MM3 (0-0.2) CBC Comment DIFF FINAL Differential Comment Blood Urea Nitrogen 7 MG/DL (7-18) Creatinine 0.63 MG/DL (0.50-1.00) Random Glucose 109 MG/DL (74-106) Total Protein 7.7 GM/DL (6.4-8.2) Albumin 4.6 GM/DL (3.4-5.0) Calcium Level 9.3 MG/DL (8.5-10.1) Alkaline Phosphatase 76 U/L (45-117) Aspartate Amino Transf (AST/SGOT) 21 U/L (15-37) Alanine Aminotransferase (ALT/SGPT) 18 U/L (10-53) Total Bilirubin 0.5 MG/DL (0.2-1.0) Sodium Level 131 MEQ/L (136-145) Potassium Level 4.1 MEQ/L (3.5-5.1) Chloride Level 95 MEQ/L (98-107) Carbon Dioxide Level 28.0 MEQ/L (21.0-32.0) Anion Gap 8 MEQ/L (5-15) Estimat Glomerular Filtration Rate 91 ML/MIN (>89) Troponin I 0.02 NG/ML (0.02-0.05) B-Type Natriuretic Peptide 202 PG/ML (0-100) Magnesium Level 1.9 MG/DL (1.5-2.5) Free Thyroxine 1.28 NG/DL (0.76-1.46) Thyroid Stimulating Hormone 3rd Gen 0.477 uIU/ML (0.358-3.740) Digoxin Level 1.4 NG/ML (0.8-2.0) Result Diagram: 08/01/17 1600 08/01/17 1600 Assessment and Plan Disease Oriented Problem List: (1) Atrial fibrillation with RVR (2) COPD exacerbation (3) HTN (hypertension), benign (4) Tobacco abuse (5) Physical deconditioning Symptom Scale: (1) Pain 0-10 Scale: 0 Comment: hx spinal stenosis (2) Shortness of breath 0-10 Scale: Unable to quantify Comment: COPD exacerbation (3) Debility 0-10 Scale: Unable to quantify Comment: Progressive. Pertinent Non-Medical Issues Psychosocial: Patient originally from [place]. Moved to [place] in 1979. Patient is , has 2 daughters Madalyn and Mariangel. 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 No service. Retired 8 years ago at the age of 69. Spiritual: No episcopalian affiliation. Legal: Advance directives completed. Ethical issues impacting care: No ethical legal issues identified. . Important Contacts Daughter Mariangel Hernandez Daughter Madalyn Godwin . Prognosis Mrs. Chandler is a 77-year-old female with a medical history significant for oxygen dependent COPD, hypertension, spinal stenosis, asthma, EtOH/tobacco use and abuse. Patient presented to ED via EMS on 08/01/17 for evaluation of shortness of breath, cough and poor appetite. Patient with reported progressive decline to include for physical tolerance, dyspnea on minimal exertion, poor appetite/weight loss. Clinical course complicated by new onset of atrial fibrillation with RVR. Patient verbalizing comfort-directed to goals , she appears hospice appropriate given her advanced COPD, profound physical deconditioning and increased symptom burden. . Code Status: No Code Plan * CODE STATUS: No code. DNR/DNI. Assisted patient with community DNR. * HEALTHCARE DECISION-MAKING: Patient participating in medical decision-making. She appears to have the ability to weight benefits versus burden of treatment options. Advance directives secured, patient has designated her daughter Mariangel Hernandez as healthcare surrogate decision maker, alt surrogate is other daughter Madalyn Godwin. * GOALS OF CARE: Patient ultimate goal is to return home for independent living. Patient verbalizing comfort-directed goals, declines any invasive intervention, anticoagulation, artificial means of life support. 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 Patient requesting an informative visit with hospice to further discuss benefits. Patient considering returning home with hospice services. Patient declining SNF for rehabilitation at this time. Hospice referral made. Both daughters fully supportive of patient's wishes. * SYMPTOMS: = Shortness of breath. Severe COPD, COPD exacerbation. Currently on Solu-Medrol 60 mg every 6 hours, Singulair at bedtime, DuoNeb as needed. = Pain, chronic pain to back, ribs, lower extremities. Patient with history of spinal stenosis. No pain regimen at home. Pain described as neuropathic in nature, patient may benefit from gabapentin 300 mg daily at bedtime. = Debility , progressive. Worsened during the past 6 months. Declining rehabilitation at this time. * Case discussed with hospice admissions nurse Diamond. * Palliative care contact information has been provided to patient and family. * Palliative care will continue to follow-up as needed for further clarifications of goals of care as patient's clinical course continues to evolve. . Time Spent Total Floor Time (mins): 38 (Total time to include review medical records, physical exam, goals of care conversation with patient, telephone conversation with patient's daughter Madalyn, case discussion with hospice admissions nurse Diamond.) >50% Counseling/Coord of Care: Yes Attestation To help prompt me to consider important information that might be impacting today's encounter and assessment, information from prior notes written by myself or my colleagues may have been "brought forward" into today's note. My signature on this note, however, is an attestation that I personally performed the exam, history, and/or decision-making noted today, and, unless otherwise indicated, the interactions with patient, family, and staff as well as the review of records all occurred today. I also attest that the listed assessment and stated plan reflect my best clinical judgment today based on the combination of historical information, prior notes, and today's exam/ interactions. When time spent is documented, it refers only to time spent today by the signer, or if indicated, combined time spent today by collaborating physician/nurse practitioner. Bertha Anne Aug 03, 2017 13:52
--- NOTE | 2017-08-03 16:24 | EKG ---
Date Performed: 08/02/2017 Time Performed: 14:40:48 PTAGE: 77 years EKG: Atrial fibrillation with uncontrolled ventricular response. Left ventricular hypertrophy Ma rked precordial ST depression, CONSIDER ACUTE INFARCT Extensive ST-T changes are probably due to vent ricular Hypertrophy. When compared to previous tracing, atrial fibrillation with rapid Ventricular re sponse is new, and ST changes suggest ischemia. Clinical corrolation strongly suggested. Abnormal ECG PREVIOUS TRACING : 08/01/2017 16.09.15 DOCTOR: Arjun Arechiga Interpretating Date/Time 08/03/2017 16:23:06
--- NOTE | 2017-08-03 16:38 | ECHRPT ---
Indication: a-fib CONCLUSIONS The left ventricular systolic function is normal with an estimated ejection fraction in the range of 55-60%. Mild concentric left ventricular hypertrophy. Doppler parameters are consistent with impaired left ventricular relaxtion (grade 1 diastolic dysfun ction). Mild mitral valve regurgitation. There is trace tricuspid valve regurgitation. BP: 147 / 69 HR: 59 Rhythm: Sinus MEASUREMENTS (Male / Female) Normal Values Technical Quality:Fair 2D ECHO LV Diastolic Diameter PLAX 4.4 cm 4.2 - 5.9 / 3.9 - 5.3 cm LV Systolic Diameter PLAX 3.1 cm IVS Diastolic Thickness 1.4 cm 0.6 - 1.0 / 0.6 - 0.9 cm LVPW Diastolic Thickness 1.4 cm 0.6 - 1.0 / 0.6 - 0.9 cm LV Relative Wall Thickness 0.6 LVOT Diameter 1.7 cm LA Systolic Diameter LX 3.8 cm 3.0 - 4.0 / 2.7 - 3.8 cm LV Ejection Fraction MOD 4C 57.1 % LV Cardiac Index MOD 4C 974.9 cm/minm LV Ejection Fraction 4C AL 58.6 % LV Cardiac Index 4C AL 1035.1 cm/minm M-MODE Aortic Root Diameter MM 2.8 cm AV Cusp Separation MM 1.4 cm DOPPLER AV Peak Velocity 134.0 cm/s AV Peak Gradient 7.2 mmHg LVOT Peak Velocity 113.0 cm/s LVOT Peak Gradient 5.1 mmHg AV Area Cont Eq pk 1.9 cm MV Area PHT 3.7 cm Mitral E Point Velocity 99.2 cm/s Mitral A Point Velocity 121.0 cm/s Mitral E to A Ratio 0.8 LV E' Lateral Velocity 7.5 cm/s Mitral E to LV E' Lateral Ratio 13.2 LV E' Septal Velocity 4.9 cm/s Mitral E to LV E' Septal Ratio 20.4 TR Peak Velocity 257.0 cm/s TR Peak Gradient 26.4 mmHg Right Atrial Pressure 10.0 mmHg Pulmonary Artery Systolic Pressu 36.4 mmHg Right Ventricular Systolic Press 36.4 mmHg PV Peak Velocity 138.0 cm/s PV Peak Gradient 7.6 mmHg FINDINGS LEFT VENTRICLE The left ventricular systolic function is normal with an estimated ejection fraction in the range of 55-60%. Normal left ventricular size. Mild concentric left ventricular hypertrophy. No regional wall motion abnormalities are present. Doppler parameters are consistent with impaired left ventricular relaxtion (grade 1 diastolic dysfun ction). RIGHT VENTRICLE Normal right ventricular size and systolic function. LEFT ATRIUM The left atrial size is upper limits of normal. RIGHT ATRIUM The right atrial size is normal. ATRIAL SEPTUM Normal atrial septal thickness without atrial level shunting by limited color doppler interrogation. AORTA The aortic root and proximal ascending aorta are normal in size on limited imaging. MITRAL VALVE Structurally normal mitral valve. Mild mitral valve regurgitation. Moderate mitral annular calcification. No mitral valve stenosis. AORTIC VALVE Probable trileaflet aortic valve. Aortic valve sclerosis is present. TRICUSPID VALVE Structurally normal tricuspid valve. There is trace tricuspid valve regurgitation. The estimated pulmonary arterial pressure is 36.4 mmHg. PULMONARY VALVE No pulmonary valve regurgitation or stenosis. VESSELS The inferior vena cava is dilated. PERICARDIUM No pericardial effusion. Anupam Jenkins DO (Electronically Signed) Final Date:03 August 2017 16:37
[2017-08-03] MEDS ORDERED: predniSONE 20 MG TAB PO SCH (21:00)
[2017-08-03] MEDS ORDERED: methylPREDNISolone SOD SUCC 125 MG/2 ML VIAL IV PUSH SCH (21:00)
== END 2017-08-03 18:22 | disposition hospice, inpatient (51) | DRG 191 ==
LOC: NEPE 15:40 → NEDA 17:12 → OBSVTOIN 17:47 → N04B 18:25 → HCIS 08-02 19:22
PROVIDERS: ADMIT Hospitalist; ATTEND Hospitalist
DX: J44.1 Chronic obstructive pulmonary disease with (acute) exacerbation (principal); J96.10 Chronic respiratory failure, unspecified whether with hypoxia or hypercapnia; Z99.81 Dependence on supplemental oxygen; I48.91 Unspecified atrial fibrillation; I10 Essential (primary) hypertension; F17.210 Nicotine dependence, cigarettes, uncomplicated; F32.9 Major depressive disorder, single episode, unspecified; Z66 Do not resuscitate; M19.90 Unspecified osteoarthritis, unspecified site; M48.00 Spinal stenosis, site unspecified; G89.29 Other chronic pain; Z85.828 Personal history of other malignant neoplasm of skin
CPT/HCPCS: 71010; 80053; 80162; 83735; 83880; 84439; 84443; 84484; 85025; 93005; 93306; 94640; 94664; 99285; J0282; J1160; J1650; J2930; J7060